=== PATIENT | female | born 1980 | race Caucasian/White ===

== ENCOUNTER → 2019-04-07 11:16 | Outpatient (CLI) | payer OTHER, MEDICAID, SELFPAY ==
--- NOTE | 2019-04-07 | DI.US.S_ITS ---
LIMITED ULTRASOUND OF LEFT BREAST: 04/07/2019 CLINICAL: Palpable left breast lump. No prior exams were available for comparison. Color flow and real-time ultrasound of the left breast 8 o'clock region were performed. Cabrera scale images of the real-time examination were reviewed. Targeted real-time grayscale and Doppler ultrasound of the left breast at the site of the patient's palpable concern demonstrates a 2.2 x 1.0 x 2.1 cm oval circumscribed hypoechoic mass with posterior acoustic enhancement and mild internal and peripheral vascularity on Doppler ultrasound located in the left breast at 8:00 position 5 cm from nipple. Heart ultrasound of the left axilla demonstrates morphologically unremarkable axillary lymph nodes with no suspicious cortical thickening and preserved fatty karina. IMPRESSION: PROBABLY BENIGN 2.2 x 2.1 x 1.0 cm oval circumscribed mass in the left breast at 8:00 position 5 cm from the nipple at the site of patient's palpable concern. This is most consistent with a fibroadenoma. A followup targeted left breast ultrasound in 6 months is recommended to demonstrate stability and to exclude malignancy or a Phyllodes tumor. Patient will also be due for bilateral mammography at that time as well. The patient is advised to monitor her breasts and to return sooner for re-evaluation should she feel anything grow or change. This exam was interpreted at Station ID: [id number]. Electronically Signed By: Hans Guadarrama M.D. ecl/:04/07/2019 14:20:43 letter sent: Followup Recommended Ultrasound BI-RADS: 3 Probably benign
--- NOTE | 2019-04-07 | DI.US.S_ITS ---
PROCEDURE: US OB <= 14 WEEKS FETUS INDICATIONS: OUTSIDE/PRIOR DATING DATA: Last menstrual period (LMP): 01/14/19. LMP-based estimated date of delivery (ROCIO): 10/22/19. TECHNIQUE: Real-time scanning was performed of the fetus and maternal pelvic organs, with image documentation. Endovaginal scanning was also performed to better visualize the fetus and maternal ovaries. COMPARISON: None. FINDINGS: Embryo: Closter-rump length measures 1.9 cm corresponding to 8 weeks 3 days. No heart tones are present. Measurement variability in dating: +/- 4 weeks by LMP, +/- 7 days by mean sac diameter (use before 6 weeks gestation if crown-rump length not able to be measured), +/- 5 days by crown-rump length (up to 8 weeks 6 days gestation), +/- 7 days by crown-rump length (up to 13 weeks 6 days gestation). Maternal organs: Right corpus luteal cyst measuring 9 mm and there is a simple left ovarian cyst measuring 3.4 cm. Limited images through the kidneys demonstrate no hydronephrosis. IMPRESSION: demise. Alycia Rodas given results by the felt cutting machine operator at 1200 hrs. 04/07/19. Dictated by: Kuldeep Jeong [facility] Interpreted: Tasha Porter MD on 04/07/2019 at 13:21 Approved by: Tasha Porter M.D. on 04/07/2019 at 13:53
== END ==
PROVIDERS: PCP Registered Nurse; Visit Provider Registered Nurse
DX: O02.1 Missed abortion (principal); N83.11 Corpus luteum cyst of right ovary; N83.292 Other ovarian cyst, left side; N63.24 Unspecified lump in the left breast, lower inner quadrant
CPT/HCPCS: 76642; 76801; 76830

== ENCOUNTER → 2019-10-26 09:59 | Outpatient (CLI) | payer OTHER, MEDICAID, SELFPAY ==
--- NOTE | 2019-10-26 | DI.MG.S_ITS ---
BILATERAL DIGITAL DIAGNOSTIC MAMMOGRAM 3D/2D: 10/26/2019 CLINICAL: Left breast lump. No prior exams were available for comparison. The tissue of both breasts is extremely dense, which lowers the sensitivity of mammography. There is a focal asymmetry in the left breast at 8 o'clock middle depth. This correlates as palpated. There also is an irregular asymmetry in the left breast posterior depth superior region seen on the mediolateral oblique view only. No other significant masses, calcifications, or other findings are seen in either breast. IMPRESSION: INCOMPLETE: NEEDS ADDITIONAL IMAGING EVALUATION The focal asymmetry in the left breast at 7 o'clock middle depth is indeterminate. The irregular asymmetry in the left breast posterior depth superior region seen on the mediolateral oblique view only is indeterminate. A targeted ultrasound of the left breast is recommended and will be performed immediately following this exam. This exam was interpreted at Station ID: [id number]. NOTE: For mammograms, a report in lay terms will be sent to the patient. Approximately 15% of breast malignancies will not be visualized mammographically. In the management of a palpable breast mass, a negative mammogram must not discourage biopsy of a clinically suspicious lesion. Electronically Signed By: Vita Edwards M.D. lk/:10/26/2019 11:50:49 ACR BI-RADS Category 0: Incomplete [id number]
--- NOTE | 2019-10-26 | DI.US.S_ITS ---
ULTRASOUND OF LEFT BREAST: 10/26/2019 CLINICAL: 6 month follow-up. Comparison is made to exams dated: 10/26/2019 mammogram and 04/07/2019 [facility]. Color flow ultrasound of the left breast was performed on the areas of interest. Cabrera scale images of the real-time examination were reviewed. There is a 2.4 cm x 1.2 cm x 2.1 cm oval mass in the left breast at 7 o'clock anterior depth. This oval mass is hypoechoic. This correlates as palpated and with mammography findings. There also is a 1.7 cm x 0.6 cm x 1.8 cm oval mass in the left breast at 11 o'clock posterior depth. This oval mass is hypoechoic. IMPRESSION: PROBABLY BENIGN The 2.4 cm x 1.2 cm x 2.1 cm oval mass in the left breast at 7 o'clock anterior depth is consistent with a fibroadenoma and is probably benign. The 1.7 cm x 0.6 cm x 1.8 cm oval mass in the left breast at 11 o'clock posterior depth is consistent with a fibroadenoma and is probably benign. A follow-up left ultrasound in 6 months is recommended to demonstrate stability. This exam was interpreted at Station ID: [id number]. Electronically Signed By: Vita johnston/:10/26/2019 14:38:56 letter sent: Followup Recommended Ultrasound BI-RADS: 3 Probably benign
== END ==
PROVIDERS: PCP Family Medicine; Referring Provider Family Medicine; Visit Provider Family Medicine
DX: R92.8 Other abnormal and inconclusive findings on diagnostic imaging of breast (principal); N63.24 Unspecified lump in the left breast, lower inner quadrant; N63.22 Unspecified lump in the left breast, upper inner quadrant
CPT/HCPCS: 76642; 77066; G0279

== ENCOUNTER → 2020-06-19 11:33 | Outpatient (CLI) | payer OTHER, MEDICAID, SELFPAY ==
--- NOTE | 2020-06-19 13:01 | DI.US.S_ITS ---
LIMITED ULTRASOUND OF LEFT BREAST: 06/19/2020 CLINICAL: 6 month follow-up of fibroadenomas. Comparison is made to exams dated: 10/26/2019 ultrasound, 10/26/2019 mammogram, and 04/07/2019 [facility]. Color flow and real-time ultrasound of the left breast 8 o'clock and 11 o'clock regions were performed. Cabrera scale images of the real-time examination were reviewed. Unchanged 2.4 cm x 1.2 cm x 2.1 cm hypoechoic oval mass in the left breast at 7 o'clock anterior depth. Unchanged 1.7 cm x 0.6 cm x 1.8 cm hypoechoic oval mass in the left breast at 11 o'clock posterior depth. IMPRESSION: BENIGN There is no sonographic evidence of malignancy. Unchanged size of two masses in the left breast consistent with fibroadenomata. Return to annual mammogram screening schedule is recommended. This exam was interpreted at Station ID: [id number]. Electronically Signed By: Duane Saunders M.D. jr/:06/19/2020 14:09:54 letter sent: Normal Exam Ultrasound BI-RADS: 2 Benign
== END ==
PROVIDERS: PCP Family Medicine; Referring Provider Family Medicine; Visit Provider Physician Assistant
DX: R92.8 Other abnormal and inconclusive findings on diagnostic imaging of breast (principal); D24.2 Benign neoplasm of left breast
CPT/HCPCS: 76642

== ENCOUNTER 2020-07-04 12:04 | Day surgery (SDC) | payer OTHER, MEDICAID, SELFPAY ==
[2020-07-04] VITALS (7 sets, daily range): BP systolic 90–113; BP diastolic 60–73; PULSE 60–68; RESP 10–17; TEMP 36.3–36.9; O2SAT 98–100; BMI 21.1
--- NOTE | 2020-07-04 | PATH_ITS ---
[facility] Accession Number: [id number] . 01 Material submitted: . PART A: cervix - EXTERNAL CERVIX PART B: cervix - INTERNAL CERVIX PART C: endocervix - ENDOCERVICAL CURETTINGS . 01 Clinical history: . SDC . 01 Diagnosis: A. 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 Negative for glandular dysplasia and invasive malignancy. High-grade squamous intraepithelial lesion focally identified at inked/cauterized endocervical tissue edge (see comment). . B. Uterine Cervix, Internal, LEEP Excision: Benign endocervical mucosa/stroma. Negative for dysplasia and invasive malignancy. . C. Endocervix, Curettage: Strips of benign endocervical epithelium. Negative for dysplasia. [facility] 07/08/2020 [facility]9 Local . 01 Comment: Although focal high-grade squamous intraepithelial lesion is identified at inked/cauterized endocervical tissue edge (as seen in specimen A, external), this area may not represent a true margin given that the endocervical excision is submitted separately as specimen B (internal) and shows no involvement by dysplasia. The ecto and deep margins of excision appear uninvolved by high-grade squamous intraepithelial lesion (as reviewed in specimen A,external). . 01 Electronically signed: . Radha Medellin MD, Pathologist NPI- [id number] . 01 Gross description: . A. Specimen A is received in formalin, labeled external cervix and consists of a 2.0 x 1.5 cm waddell-pink wrinkled portion of ectocervix, excised to a depth of 0.8 cm. There is a 0.9 x 0.1 cm slit-like, probe-patient os. The endocervical margin is inked blue. The ectocervical margin is inked black. The specimen is radially sectioned and submitted in four quadrants in cassettes A1-A4. B. Specimen B is received in formalin, labeled internal cervix and consists of a 1.5 x 1.3 x 0.9 cm irregular waddell portion of cervix. The margin is inked blue. The specimen is serially sectioned and entirely submitted in cassettes B1-B3. C. Specimen C is received in formalin, labeled endocervical curettings and consists of multiple waddell-pink fragments of soft tissue admixed with mucus and clotted blood, measuring 2.0 x 1.0 x 0.2 cm in aggregate. The specimen is filtered and entirely submitted in cassette C1. ([id number]) /PERICO 07/05/2020 1725 Local . 01 Pathologist provided ICD-10: D06.9 . 01 CPT . 408243, 158435, [id number] Performed at: 01 [facility] [address] [place] [address], [place], [place] [id number] MD Spencer Brannon MD Phone: [phone]
[2020-07-04 12:49] LABS: COVID19 -Nasal RAPID Negative (Negative)
--- NOTE | 2020-07-04 12:50 | PM.GYNHP.1 ---
History of Present Illness History of Present Illness Reason for admission: other (ERVIN 2 of the cervix) Narrative: Niall Urbina is a 39 year old female here for LEEP procedure for ERVIN 2 on cervical biopsies and ECC [facility] Medical History (Updated 07/04/20 @ 12:52 by Charlotte Riojas MD) Breast fibroadenoma Social History household members: friend(s) Smoking Status: Never smoker Meds Home Medications and Allergies Home Medications Medication Instructions Recorded Confirmed Type No Known Home Medications 06/19/20 07/04/20 History Allergies Allergy/AdvReac Type Severity Reaction Status Date / Time amoxicillin [AMOXICILLIN] Allergy Mild HIVES Verified 07/04/20 12:32 Review of Systems Review of Systems ROS: Yes All systems reviewed with the patient and are negative except as otherwise documented Exam Vital Signs (past 8 hours): - 07/04/20 12:33 Temperature 97.9 F Pulse Rate 65 Respiratory Rate 16 Blood Pressure 109/73 Pulse Oximetry 100 Oxygen Delivery Method Room Air Narrative Exam Narrative: HEENT exam within normal limits. Lungs are clear to auscultation percussion. No thyromegaly. Heart is regular rate and rhythm no S3-S4 or murmurs. Abdomen is soft, nontender with no palpable organomegaly. Normal external genitalia, vagina, cervix. Uterus is not enlarged and nontender. No adnexal masses or tenderness. Extremities without edema and nontender. Objective Labs Labs: Laboratory Results - last 24 hr 07/04/20 12:14 SARS-CoV-2 (PCR) Negative Assessment & Plan Assessment and plan (1) ERVIN II (cervical intraepithelial neoplasia II): Status: Acute Assessment & Plan narrative: Patient with ERVIN 2 on colpo directed biopsies and ECC. Here for a LEEP procedure. COVID-19 COVID-19 status: Negative Result date/Date tested (Pos, Neg/Pending): 07/03/20
[2020-07-04] MEDS: LACTATED RINGERS 1,000 ML 100 ML IV (12:51)
--- NOTE | 2020-07-04 13:12 | SUR.OPER ---
Lithotomy on padded OR bed, head on pillow, arms secured on padded arm boards at <90 degrees abduction. Legs secured in padded yellow fins stirrups.
--- NOTE | 2020-07-04 13:41 | PM.PREOP ---
Pre-operative Note COVID-19 COVID-19 status: Negative Result date/Date tested (Pos, Neg/Pending): 07/03/20 Interval Note History & Physical reviewed/Exam performed by Physician: Yes Changes to H&P: No
[2020-07-04] MEDS: FERRIC SUBSULFATE 8 GM SOLUTION 8 ML TOP (13:59)
[2020-07-04] MEDS: BUPIVACAINE 0.5% W/ EPI (PF) 30 ML VIAL INJ (13:59)
[2020-07-04] MEDS: POTASSIUM IODIDE/IODINE 473 ML SOLUTION TOP (14:03)
--- NOTE | 2020-07-04 14:18 | PM.OP.1 ---
Operative Date/Time/Diagnoses Date of procedure: 07/04/20 Time of procedure: 14:18 Pre-op diagnosis: ERVIN 2 of the cervix also on ECC Post-op diagnosis: same Procedure & Clinicians Procedure: LEEP procedure with ECC Same procedure as scheduled: Yes Indications: ERVIN 2 on colpo directed biopsies with positive ERVIN 2 on ECC Surgeon: Charlotte Riojas Click Yes if Unassisted: Yes Anesthesia Type: General Operative Notes Findings: Normal exam under anesthesia. No obvious visual lesions. Closure Type: not applicable Specimen(s): other (External LEEP, internal LEEP, ECC) Estimated Blood Loss (mL): 1 Blood products transfused: none Procedure in detail: Patient is brought to the operating room where she underwent general anesthesia was placed in [facility] stirrups. Warming was with blankets, no antibiotics indicated. A check system was reviewed with the staff in the room prior to beginning the case. A coated speculum was placed in the vagina. The cervix was treated with iodine. There was a nonstaining area at 11:00 a.m.. The cervix was injected with 20 cc of 0.5% Marcaine with epinephrine. A LEEP was performed of the entire squamocolumnar junction at 60 w. A slightly deeper biopsy was performed. An ECC was performed. The base of the excision was treated with ball cautery at 30 w. The area of the cervix outside of the resection was cauterized approximately a ball with away from the edge of the incision. Monsel's was placed. There was no bleeding. Patient went to recovery room in good condition. Counts of instruments and sponges were correct. Complications: none Post-operative Condition: stable Disposition: same day surgery Plan for aftercare: Treatment and follow-up based on biopsy results
--- NOTE | 2020-07-04 15:25 | SUR.PHASEII ---
D/Cinstructions discussed with pt, pt voiced an understanding. Belly soft, no nausea. Veena pad c/c/i. Pt left when ready and left in stable condition.
== END 2020-07-04 15:15 | disposition home or self-care (01) ==
PROVIDERS: PCP Family Medicine; Referring Provider Specialist; Visit Provider Specialist
PROC: 0UBC7ZZ Excision of Cervix, Via Natural or Artificial Opening (ICD-10-PCS; CPT 57522; principal; 2020-07-04 13:30)
DX: D06.1 Carcinoma in situ of exocervix (principal); Z20.822 Contact with and (suspected) exposure to COVID-19
CPT/HCPCS: 57522; 87635; A9270; J1100; J1885; J2405; J2704; J3010